=== PATIENT | female | born 1950 | race Caucasian/White ===

== ENCOUNTER 2018-06-09 12:48 | Outpatient (CLI) | payer MEDICARE | END 2018-06-09 12:49 | disposition home or self-care (01) | LOC: BICMAMMO 12:48 | PROVIDERS: ATTEND Family Medicine | DX: Z12.31 Encounter for screening mammogram for malignant neoplasm of breast (principal) | CPT/HCPCS: 77063; 77067 ==

== ENCOUNTER 2019-01-30 07:15 | Outpatient (CLI) | payer MEDICARE, OTHER ==
--- NOTE | 2019-01-30 08:33 | ULT ---
GALLBLADDER ULTRASOUND: HISTORY: Right upper quadrant pain. FINDINGS: The liver, pancreas, right kidney, and gallbladder appear normal. The common duct measures 5 mm in d iameter. No free fluid is seen in the Morison's pouch. IMPRESSION: Normal exam. POS: [facility]
== END 2019-01-30 07:16 | disposition home or self-care (01) ==
LOC: ULT 07:15
PROVIDERS: ATTEND Physician Assistant
DX: R10.11 Right upper quadrant pain (principal)
CPT/HCPCS: 76705

== ENCOUNTER 2019-05-05 11:54 | Outpatient (CLI) | payer MEDICARE, OTHER ==
--- NOTE | 2019-05-05 12:31 | RAD ---
EXAM: Chest 2 views: HISTORY: Cough and wheezing for one month COMPARISON: 11/20/2016 FINDINGS: There is a normal-sized cardiomediastinal silhouette. There is no evidence of consolidation, mass, or pleural effusion. The bones are unremarkable. IMPRESSION: No evidence of acute cardiopulmonary disease
== END 2019-05-05 11:55 | disposition home or self-care (01) ==
LOC: BICRAD 11:54
PROVIDERS: ATTEND Family Medicine
DX: J06.9 Acute upper respiratory infection, unspecified (principal)
CPT/HCPCS: 36415; 71046; 80061; 80076

== ENCOUNTER 2020-02-04 07:37 | Outpatient (CLI) | payer MEDICARE, OTHER ==
--- NOTE | 2020-02-04 12:42 | NM ---
NUCLEAR MEDICINE HIDA SCAN: HISTORY: Right upper quadrant pain. COMPARISON: None. TECHNIQUE: The patient was administered 5.21 mCi of Technetium 99m mebrofenin intravenously. Gallbladder ejecti on fraction was determined after the patient was administered 8 ounces of Ensure orally, 1 hour after injection of radiopharmaceutical. FINDINGS: Appropriate uptake of the radiotracer by the hepatic parenchyma. There is localization of radiotrace r into the intrahepatic biliary system. Passage of radiotracer from the common bile duct into small bowel loops. There is localization of radiotracer in the gallbladder as early as 10 minutes. Gallbladder ejection fraction 93%. IMPRESSION: 1. No scintigraphic evidence of acute cholecystitis. 2. 93% gallbladder ejection fraction. POS: [facility]
== END 2020-02-04 07:38 | disposition home or self-care (01) ==
LOC: NM 07:37
PROVIDERS: ATTEND Family Medicine
DX: R10.11 Right upper quadrant pain (principal)
CPT/HCPCS: 78227; A9537

== ENCOUNTER 2021-04-06 08:32 | Observation (INO) | payer MEDICARE, OTHER ==
[2021-04-06 09:35] LABS: #Basophils 0.1 thou/uL (0.0-0.2); #Eosinphils 0.2 thou/uL (0.0-0.7); #Lymphocytes 2.4 thou/uL (1.20-3.40); #Monocytes 0.5 thou/uL (0.11-0.59); #Neutrophils 3.6 thou/uL (1.40-6.50); %Basophils 0.9 % (0.0-1.0); %Eosinophils 2.6 % (0.0-10.0); %Lymphocytes 35.9 % (21.0-51.0); %Monocytes 7.1 % (0.0-10.0); %Neutrophils 53.4 % (42.0-75.0); Hemoglobin 15.6 g/dL (12.0-16.0); Mean Corpuscular HGB CONC 33.7 g/dL (32.0-36.0); Mean Corpuscular Hemoglobin 30.2 pg (27.0-31.0); Mean Corpuscular Volume 89.7 fL (78.0-98.0); Platelet Count 164 thou/uL (130-400); RBC Distribution Width 12.8 % (11.5-14.5); Red Blood Cell (RBC) Count 5.16 mill/uL (4.20-5.40); White Blood Cell (WBC) Count 6.8 thou/uL (4.8-10.8)
[2021-04-06 09:54] LABS: ALT (SGPT) 40 U/L (8-55); AST (SGOT) 29 U/L (5-34); Albumin 4.4 g/dL (3.4-4.8); Alkaline Phosphatase 93 U/L (40-110); Anion Gap 14 mmol/L (10-20); BUN (Urea Nitrogen) 13 mg/dL (9.8-20.1); Bilirubin, Total 0.5 mg/dL (0.2-1.2); CK (CPK) 50 U/L (29-168); Calc. Creatinine Clearance 0 mL/min (70-130); Carbon Dioxide 23 mmol/L (23-31); Chloride 107 mmol/L (98-107); Globulin 3.5 g/dL (2.4-3.5); Glucose 94 mg/dL (80-115); Lipase 21 U/L (8-78); Protein, Total 7.9 g/dL (5.8-8.1); Sodium 140 mmol/L (136-145)
[2021-04-06] MEDS ORDERED: Aspirin Chewable 81 MG TAB ONE (11:19)
[2021-04-06] MEDS ORDERED: Nitroglycerin 2% Ointment 1 INCH/1 GM Packet ONE (11:19)
[2021-04-06] MEDS ORDERED: Acetaminophen 325 MG TAB PO PRN (13:12)
[2021-04-06] MEDS ORDERED: Ondansetron ODT 4 MG TAB PO PRN (13:12)
[2021-04-06] MEDS ORDERED: Nitroglycerin 0.4 MG TAB (25 Tab Bottle) SL PRN (13:13)
[2021-04-06] MEDS ORDERED: Enoxaparin Sodium 40 MG/0.4 ML SYRINGE SC SCH (13:15)
[2021-04-06 14:53] VITALS: BMI 30.7
[2021-04-06 15:03] LABS: Magnesium 1.7 mg/dL (1.6-2.6)
[2021-04-07 05:24] LABS: #Basophils 0.1 thou/uL (0.0-0.2); #Eosinphils 0.2 thou/uL (0.0-0.7); #Lymphocytes 2.4 thou/uL (1.20-3.40); #Monocytes 0.5 thou/uL (0.11-0.59); #Neutrophils 2.8 thou/uL (1.40-6.50); %Basophils 1.3 % (0.0-1.0); %Eosinophils 3.2 % (0.0-10.0); %Lymphocytes 40.2 % (21.0-51.0); %Monocytes 7.7 % (0.0-10.0); %Neutrophils 47.7 % (42.0-75.0); Hemoglobin 13.6 g/dL (12.0-16.0); Mean Corpuscular HGB CONC 33.8 g/dL (32.0-36.0); Mean Corpuscular Hemoglobin 30.4 pg (27.0-31.0); Mean Corpuscular Volume 89.7 fL (78.0-98.0); Platelet Count 148 thou/uL (130-400); RBC Distribution Width 12.7 % (11.5-14.5); Red Blood Cell (RBC) Count 4.48 mill/uL (4.20-5.40); White Blood Cell (WBC) Count 5.9 thou/uL (4.8-10.8)
[2021-04-07 06:14] LABS: Chloride 109 mmol/L (98-107); Potassium 3.9 mmol/L (3.5-5.1); Sodium 139 mmol/L (136-145)
[2021-04-07 06:15] LABS: Glucose 83 mg/dL (80-115); Triglycerides 281 mg/dL (Less than 150)
[2021-04-07 06:17] LABS: Anion Gap 11 mmol/L (10-20); Carbon Dioxide 23 mmol/L (23-31)
[2021-04-07 06:18] LABS: Calc. Creatinine Clearance 86 mL/min (70-130)
[2021-04-07 06:19] LABS: BUN (Urea Nitrogen) 12 mg/dL (9.8-20.1)
[2021-04-07 06:20] LABS: Cholesterol 203 mg/dl (< 200 Desired)
[2021-04-07 06:21] LABS: Cardiac Risk 6.2 (Less than 4.5); HDL Cholesterol 33 mg/dL (>60 Neg Risk); LDL Cholesterol, Calculated 114 mg/dL
[2021-04-07] MEDS ORDERED: Fioricet 325/50/40 mg Tablet PO PRN (08:59)
[2021-04-07] MEDS ORDERED: Furosemide 20 MG TAB PO PRN (08:59)
[2021-04-07] MEDS ORDERED: Potassium Chloride 20 MEQ TAB PO PRN (08:59)
[2021-04-07] MEDS: Aspirin Chewable 81 MG TAB PO SCH ×2 (09:23→11:21)
[2021-04-07] MEDS: Enoxaparin Sodium 40 MG/0.4 ML SYRINGE SC SCH ×2 (09:24→11:21)
[2021-04-07] MEDS ORDERED: ADENOSINE 60 MG/20 ML VIAL ONE (09:59)
[2021-04-07 11:40] VITALS: BP 137/65; TEMP 97.6
[2021-04-07 11:54] LABS: SARS-CoV-2 PCR by NAA Not Detected (NotDetected)
[2021-04-07] MEDS ORDERED: Atorvastatin Calcium 40 MG TAB PO SCH (21:00)
== END 2021-04-07 14:10 | disposition home or self-care (01) ==
LOC: ERS 08:32 → 2SW 11:44
PROVIDERS: ADMIT Internal Medicine; ATTEND Internal Medicine
DX: R07.89 Other chest pain (principal); I87.2 Venous insufficiency (chronic) (peripheral); I48.91 Unspecified atrial fibrillation; I44.0 Atrioventricular block, first degree; M79.10 Myalgia, unspecified site; R79.89 Other specified abnormal findings of blood chemistry; I49.3 Ventricular premature depolarization; I34.1 Nonrheumatic mitral (valve) prolapse; K21.9 Gastro-esophageal reflux disease without esophagitis; Z20.822 Contact with and (suspected) exposure to COVID-19; Z79.899 Other long term (current) drug therapy; Z88.1 Allergy status to other antibiotic agents; Z88.5 Allergy status to narcotic agent; Z90.710 Acquired absence of both cervix and uterus
CPT/HCPCS: 71275; 78452; 80048; 80061; 82550; 83690; 83735; 83880; 84484 ×2; 85025; 93005; 93017; 93306; 93971; A9500; U0003; U0005; 36415; 80053; 84443; J0153; J1650

== ENCOUNTER 2021-12-08 09:23 | Outpatient (CLI) | payer MEDICARE, OTHER | END 2021-12-08 09:24 | disposition home or self-care (01) | LOC: ULT 09:23 | PROVIDERS: ATTEND Physician Assistant Medical | DX: R10.11 Right upper quadrant pain (principal); R14.0 Abdominal distension (gaseous); M54.9 Dorsalgia, unspecified; R19.8 Other specified symptoms and signs involving the digestive system and abdomen; K76.0 Fatty (change of) liver, not elsewhere classified; K82.8 Other specified diseases of gallbladder | CPT/HCPCS: 76705 ==

== ENCOUNTER 2022-07-19 13:57 | Outpatient (CLI) | payer MEDICARE, OTHER | END 2022-07-19 13:58 | disposition home or self-care (01) | LOC: TBSIIMAG 13:57 | PROVIDERS: ATTEND Orthopaedic Surgery | DX: M48.061 Spinal stenosis, lumbar region without neurogenic claudication (principal); M51.36 Other intervertebral disc degeneration, lumbar region | CPT/HCPCS: 72148 ==

== ENCOUNTER 2023-02-28 09:34 | Outpatient (CLI) | payer MEDICARE, OTHER | END 2023-02-28 09:35 | disposition home or self-care (01) | LOC: BICMAMMO 09:34 | PROVIDERS: ATTEND Family Medicine | DX: Z12.31 Encounter for screening mammogram for malignant neoplasm of breast (principal) | CPT/HCPCS: 77063; 77067 ==

== ENCOUNTER 2023-10-15 08:09 | Inpatient (IN) | payer MEDICARE, OTHER ==
[2023-10-09 15:53] VITALS: BMI 32.1
[2023-10-15] MEDS ORDERED: LevoFLOXacin D5W 500 mg (100 mL) BAG ONE (10:08)
[2023-10-15] MEDS ORDERED: Clindamycin/D5W 600 mg/50 ml Premix Bag ONE (10:08)
[2023-10-15] MEDS ORDERED: Vancomycin (BATCH) 1.5 GM/300 ML BAG ONE (10:09)
[2023-10-15] MEDS ORDERED: Dexamethasone 4 mg/ml Vial ONE (10:20)
[2023-10-15] MEDS ORDERED: Ondansetron PF 4 MG/2 ML Vial ONE ×2 (10:20→14:53)
[2023-10-15] MEDS ORDERED: Rocuronium Bromide 10 MG/ML (10ML VIAL) ONE (10:20)
[2023-10-15] MEDS ORDERED: PROPOFOL 20 ML ONE (10:20)
[2023-10-15] MEDS ORDERED: SUGAMMADEX SODIUM 200 MG/2 ML VIAL ONE (10:20)
[2023-10-15] MEDS ORDERED: fentaNYL PF 100 MCG/2 ML SYRINGE ONE (10:20)
[2023-10-15] MEDS ORDERED: Dexmedetomidine 200 MCG/2 ML VIAL ONE ×2 (10:38→10:39)
[2023-10-15] MEDS ORDERED: diphenhydrAMINE 25 MG CAP PO PRN ×2 (11:00→19:00)
[2023-10-15] MEDS ORDERED: Promethazine HCl 25 MG/ML VIAL IM PRN ×2 (11:00→19:00)
[2023-10-15] MEDS ORDERED: Moisturizing Cream (Eucerin) 113 GM JAR TOP PRN ×2 (11:00→19:00)
[2023-10-15] MEDS ORDERED: Naloxone HCl 0.4 mg/ml Vial IVP PRN ×2 (11:00→19:00)
[2023-10-15] MEDS ORDERED: diphenhydrAMINE 50 MG/ML VIAL IM PRN ×2 (11:00→19:00)
[2023-10-15] MEDS ORDERED: FENTANYL 1,000 MCG/20 ML VIAL 500 MCG, Bupivacaine 0.5% 15 ML in Sodium Chloride 0.9% 7... EPIDURAL SCH (11:00)
[2023-10-15] MEDS ORDERED: Promethazine HCl 25 MG SUPP PR PRN ×2 (11:00→19:00)
[2023-10-15] MEDS ORDERED: Naloxone HCl 0.4 mg/ml Vial IV PRN ×2 (11:00→19:00)
[2023-10-15] MEDS ORDERED: traMADol HCl 50 MG TAB PO PRN ×2 (11:00)
[2023-10-15] MEDS ORDERED: diphenhydrAMINE 50 MG/ML VIAL IVP PRN ×2 (11:00→19:00)
[2023-10-15] MEDS ORDERED: fentaNYL 50 mcg/mL 1 mL Vial ONE ×3 (11:23→14:49)
[2023-10-15] MEDS ORDERED: Tranexamic Acid 1,000 MG/10 ML VIAL ONE (11:43)
[2023-10-15] MEDS ORDERED: Sodium Chloride 0.9% 100 ML ONE (11:43)
[2023-10-15] MEDS ORDERED: Ropivacaine 0.2% HCl/PF 20 ML ONE (11:51)
[2023-10-15] MEDS ORDERED: Zolpidem Tartrate 5 MG TAB PO PRN (12:27)
[2023-10-15] MEDS ORDERED: Acetaminophen 325 MG TAB PO PRN (12:27)
[2023-10-15] MEDS ORDERED: PHENYLEPHRINE-NS 100 MCG/ML 10 ML SYRINGE ONE (12:30)
[2023-10-15] MEDS ORDERED: Lidocaine 1.5% w/Epi 1:200K 30 ML VIAL (Epid Use) ONE (12:30)
[2023-10-15] MEDS ORDERED: ePHEDrine Sulfate 50 MG/10 ML VIAL ONE (12:36)
[2023-10-15] MEDS ORDERED: Promethazine HCl 25 MG/ML VIAL ONE (15:15)
[2023-10-15] MEDS: Acetaminophen 325 MG TAB PO SCH (16:18)
[2023-10-15] MEDS: Sodium Chloride 0.9% 1,000 ML IV SCH (16:19)
[2023-10-15] MEDS: Clindamycin/D5W 900 MG in Premix 1 BAG IVPB SCH (17:07)
[2023-10-15] MEDS: Ketorolac Tromethamine 30 MG (1 mL) VIAL IVP SCH (17:07)
[2023-10-15] MEDS ORDERED: Bupivacaine 0.25% 10 ML VIAL EPIDURAL PRN (19:00)
[2023-10-15] MEDS ORDERED: Ondansetron PF 4 MG/2 ML Vial IVP PRN (19:00)
[2023-10-15] MEDS ORDERED: FENTANYL 500 MCG/10 ML VIAL 500 MCG, Bupivacaine 0.75% 10 ML in Sodium Chloride 0.9% 80 ML EPIDURAL SCH (19:00)
[2023-10-15] MEDS: Ferrous Gluconate 324 MG TAB PO SCH (20:10)
[2023-10-15] MEDS: Senokot S 8.6-50 MG TAB PO SCH (20:10)
[2023-10-15] MEDS ORDERED: Apixaban 2.5 MG TAB PO SCH (21:00)
[2023-10-15] MEDS ORDERED: Ketorolac Tromethamine 30 MG (1 mL) VIAL IVP SCH (23:59)
[2023-10-16] MEDS ORDERED: Naloxone HCl 0.4 mg/ml Vial IVP PRN ×2 (03:24)
[2023-10-16] MEDS ORDERED: Moisturizing Cream (Eucerin) 113 GM JAR TOP PRN (03:24)
[2023-10-16] MEDS ORDERED: Ondansetron PF 4 MG/2 ML Vial IVP PRN ×2 (03:24→21:03)
[2023-10-16] MEDS ORDERED: diphenhydrAMINE 25 MG CAP PO PRN ×2 (03:24→21:03)
[2023-10-16] MEDS ORDERED: diphenhydrAMINE 50 MG/ML VIAL IM PRN ×2 (03:24→21:03)
[2023-10-16] MEDS ORDERED: Bupivacaine 0.25% 10 ML VIAL EPIDURAL PRN (03:24)
[2023-10-16] MEDS ORDERED: diphenhydrAMINE 50 MG/ML VIAL IVP PRN ×3 (03:24→21:06)
[2023-10-16] MEDS ORDERED: Promethazine HCl 25 MG SUPP PR PRN (03:24)
[2023-10-16] MEDS ORDERED: Promethazine HCl 25 MG/ML VIAL IM PRN ×2 (03:24→21:03)
[2023-10-16] MEDS ORDERED: Zolpidem Tartrate 5 MG TAB PO PRN (03:24)
[2023-10-16] MEDS ORDERED: Communication Order-Pharmacy FS SCH ×3 (03:30→21:15)
[2023-10-16] MEDS ORDERED: FENTANYL EPIDURAL SCH (03:30)
[2023-10-16] MEDS ORDERED: BUPIVACAINE EPIDURAL SCH (03:30)
[2023-10-16] MEDS: FENTANYL 500 MCG/10 ML VIAL 500 MCG, Bupivacaine 0.75% 10 ML in Sodium Chloride 0.9% 80 ML EPIDURAL SCH (04:46)
[2023-10-16 05:21] LABS: Hematocrit 34.7 % (36.0-47.0); Hemoglobin 11.7 g/dL (12.0-16.0); Mean Corpuscular HGB CONC 33.7 g/dL (32.0-36.0); Mean Corpuscular Hemoglobin 30.2 pg (27.0-31.0); Mean Corpuscular Volume 89.4 fL (78.0-98.0); Mean Platelet Volume 10.4 fL (7.4-10.4); Platelet Count 143 10x3/uL (130-400); RBC Distribution Width 13.7 % (11.5-14.5); Red Blood Cell (RBC) Count 3.88 mill/uL (4.20-5.40)
[2023-10-16] MEDS ORDERED: Apixaban 2.5 MG TAB PO SCH (09:00)
[2023-10-16] MEDS: Ondansetron PF 4 MG/2 ML Vial IVP PRN (09:27)
[2023-10-16] MEDS: Multivitamin W/ Minerals 1 TAB PO SCH (09:50)
[2023-10-16] MEDS: HYDROcodone/Acetaminophen 7.5/325 mg Tablet PO PRN ×2 (09:54→16:49)
[2023-10-16] MEDS: Apixaban 2.5 MG TAB PO SCH (20:35)
[2023-10-16] MEDS ORDERED: Naloxone HCl 0.4 mg/ml Vial IV PRN (21:03)
[2023-10-16] MEDS: FENTANYL 500 MCG/10 ML VIAL 2,000 MCG in Sodium Chloride 0.9% 60 ML IV PRN (21:29)
[2023-10-17 05:35] LABS: Hematocrit 35.6 % (36.0-47.0); Hemoglobin 11.6 g/dL (12.0-16.0); Mean Corpuscular Hemoglobin 30.4 pg (27.0-31.0); Mean Platelet Volume 10.8 fL (7.4-10.4); Platelet Count 115 10x3/uL (130-400); RBC Distribution Width 14.1 % (11.5-14.5); Red Blood Cell (RBC) Count 3.81 mill/uL (4.20-5.40)
[2023-10-17] MEDS ORDERED: Cyclobenzaprine 10 MG TAB PO PRN (07:35)
[2023-10-17 12:56] LABS: Anion Gap 6 mmol/L (10-20); BUN (Urea Nitrogen) 9 mg/dL (9.8-20.1); Calc. Creatinine Clearance 86 mL/min (70-130); Calcium 7.8 mg/dL (7.8-10.44); Carbon Dioxide 24 mmol/L (23-31); Chloride 111 mmol/L (98-107); Estimated GFR 74; Glucose 109 mg/dL (83-110); Potassium 3.4 mmol/L (3.5-5.1); Sodium 138 mmol/L (136-145)
[2023-10-17] MEDS: Pantoprazole DR 40 MG TAB PO SCH ×2 (13:46)
[2023-10-17] MEDS: Furosemide 20 MG TAB PO SCH (14:59)
[2023-10-17] MEDS: Ketorolac Tromethamine 30 MG (1 mL) VIAL IVP SCH (18:26)
[2023-10-17] MEDS: Simvastatin 10 MG TAB PO SCH (20:48)
[2023-10-18 06:08] LABS: Hematocrit 30.4 % (36.0-47.0); Hemoglobin 10.1 g/dL (12.0-16.0); Mean Corpuscular HGB CONC 33.2 g/dL (32.0-36.0); Mean Corpuscular Hemoglobin 30.7 pg (27.0-31.0); Mean Corpuscular Volume 92.4 fL (78.0-98.0); Mean Platelet Volume 10.5 fL (7.4-10.4); Platelet Count 123 10x3/uL (130-400); Red Blood Cell (RBC) Count 3.29 mill/uL (4.20-5.40)
[2023-10-18] MEDS: traMADol HCl 50 MG TAB PO PRN (08:42)
[2023-10-18] MEDS ORDERED: CeleCOXIB 100 MG CAP PO SCH (09:00)
[2023-10-18 11:14] VITALS: BP 117/69; TEMP 98.2
== END 2023-10-18 13:48 | disposition home or self-care (01) | DRG 470 ==
LOC: SDC 08:09 → SJJU 16:23 → OBSVTOIN 10-17 06:52
PROVIDERS: ADMIT Orthopaedic Surgery; ATTEND Orthopaedic Surgery
PROC: 0SRB0JZ Replacement of Left Hip Joint with Synthetic Substitute, Open Approach (ICD-10-PCS; principal; 2023-10-15)
DX: M16.12 Unilateral primary osteoarthritis, left hip (principal); K21.9 Gastro-esophageal reflux disease without esophagitis; I10 Essential (primary) hypertension; Z88.8 Allergy status to other drugs, medicaments and biological substances; E78.5 Hyperlipidemia, unspecified; Z98.51 Tubal ligation status; Z90.710 Acquired absence of both cervix and uterus; Z90.89 Acquired absence of other organs; Z79.899 Other long term (current) drug therapy; I48.0 Paroxysmal atrial fibrillation; Z82.49 Family history of ischemic heart disease and other diseases of the circulatory system; Z87.891 Personal history of nicotine dependence; G43.909 Migraine, unspecified, not intractable, without status migrainosus
CPT/HCPCS: 36415; 71045; 72170; 80048; 85027; C1713; C1776; J1100; J1885; J1956; J2001; J2405; J2550; J2704; J2795; J3010; J3370; J3490; J7050

== ENCOUNTER 2024-02-15 10:41 | Observation (INO) | payer MEDICARE ==
[2024-02-15 11:04] LABS: #Basophils 0.05 10x3/uL (0.0-0.2); %Basophils 0.6 % (0.0-1.0); %Eosinophils 2.9 % (0.0-10.0); %Lymphocytes 29.2 % (21.0-51.0); %Monocytes 7.5 % (0.0-10.0); %Neutrophils 58.8 % (42.0-75.0); Hematocrit 43.3 % (36.0-47.0); Hemoglobin 14.8 g/dL (12.0-16.0); Mean Corpuscular HGB CONC 34.2 g/dL (32.0-36.0); Mean Corpuscular Volume 84.7 fL (78.0-98.0); Platelet Count 154 10x3/uL (130-400); RBC Distribution Width 14.6 % (11.5-14.5); Red Blood Cell (RBC) Count 5.11 mill/uL (4.20-5.40)
[2024-02-15] MEDS ORDERED: Aspirin Chewable 81 MG TAB ONE (11:13)
[2024-02-15 11:25] LABS: ALT (SGPT) 76 U/L (8-55); AST (SGOT) 48 U/L (5-34); Albumin 3.9 g/dL (3.4-4.8); Alkaline Phosphatase 91 U/L (40-110); Anion Gap 13 mmol/L (10-20); BUN (Urea Nitrogen) 14 mg/dL (9.8-20.1); Bilirubin, Total 0.6 mg/dL (0.2-1.2); Calc. Creatinine Clearance 0 mL/min (70-130); Calcium 9.7 mg/dL (7.8-10.44); Carbon Dioxide 25 mmol/L (23-31); Chloride 108 mmol/L (98-107); Estimated GFR 68; Globulin 3.4 g/dL (2.4-3.5); Glucose 90 mg/dL (83-110); Lipase 13 U/L (8-78); Potassium 4.1 mmol/L (3.5-5.1); Protein, Total 7.3 g/dL (5.8-8.1); Sodium 142 mmol/L (136-145)
[2024-02-15 11:32] LABS: Troponin I Less than 0.010 ng/mL (< 0.028)
[2024-02-15] MEDS ORDERED: Morphine 2 MG/ML VIAL ONE (12:48)
[2024-02-15] MEDS ORDERED: Ondansetron PF 4 MG/2 ML Vial IVP PRN (14:35)
[2024-02-15] MEDS ORDERED: Nitroglycerin 0.4 MG TAB (25 Tab Bottle) SL PRN (14:35)
[2024-02-15 15:38] LABS: Troponin I Less than 0.010 ng/mL (< 0.028)
[2024-02-15 17:46] VITALS: BMI 32.1
[2024-02-15] MEDS: Atorvastatin Calcium 40 MG TAB PO SCH (20:54)
[2024-02-15] MEDS: Pantoprazole DR 40 MG TAB PO SCH (20:54)
[2024-02-16 04:49] LABS: Anion Gap 11 mmol/L (10-20); BUN (Urea Nitrogen) 16 mg/dL (9.8-20.1); Calc. Creatinine Clearance 61 mL/min (70-130); Calcium 9.3 mg/dL (7.8-10.44); Carbon Dioxide 26 mmol/L (23-31); Chloride 109 mmol/L (98-107); Estimated GFR 49; Glucose 133 mg/dL (83-110); Potassium 4.4 mmol/L (3.5-5.1); Sodium 142 mmol/L (136-145)
[2024-02-16 04:52] LABS: #Basophils 0.05 10x3/uL (0.0-0.2); %Basophils 0.6 % (0.0-1.0); %Eosinophils 2.5 % (0.0-10.0); %Lymphocytes 22.3 % (21.0-51.0); %Monocytes 6.7 % (0.0-10.0); %Neutrophils 67.3 % (42.0-75.0); Hematocrit 40.5 % (36.0-47.0); Hemoglobin 13.4 g/dL (12.0-16.0); Mean Corpuscular HGB CONC 33.1 g/dL (32.0-36.0); Mean Corpuscular Hemoglobin 29.5 pg (27.0-31.0); Mean Corpuscular Volume 89.2 fL (78.0-98.0); Mean Platelet Volume 10.6 fL (7.4-10.4); Platelet Count 146 10x3/uL (130-400); RBC Distribution Width 14.7 % (11.5-14.5); Red Blood Cell (RBC) Count 4.54 mill/uL (4.20-5.40)
[2024-02-16] MEDS: Pantoprazole DR 40 MG TAB PO SCH (08:46)
[2024-02-16] MEDS: Aspirin 81 mg Enteric Coated Tablet PO SCH (08:46)
[2024-02-16] MEDS ORDERED: Enoxaparin 40 MG (0.4 mL) SYRINGE SC SCH (09:00)
[2024-02-16] MEDS ORDERED: Regadenoson 0.4 MG/5 ML SYRINGE ONE (11:31)
[2024-02-16 13:25] VITALS: BP 157/82; TEMP 97.6
== END 2024-02-16 15:34 | disposition home or self-care (01) ==
LOC: ERS 10:41 → ERHOLD 14:06 → 2SW 17:16
PROVIDERS: ADMIT Internal Medicine; ATTEND Internal Medicine
DX: R07.9 Chest pain, unspecified (principal); K21.9 Gastro-esophageal reflux disease without esophagitis; I10 Essential (primary) hypertension; E78.5 Hyperlipidemia, unspecified; I48.91 Unspecified atrial fibrillation; Z98.51 Tubal ligation status; Z90.710 Acquired absence of both cervix and uterus; Z90.49 Acquired absence of other specified parts of digestive tract; Z90.89 Acquired absence of other organs; Z88.5 Allergy status to narcotic agent; Z88.1 Allergy status to other antibiotic agents
CPT/HCPCS: 71045; 78452; 80048; 80053; 83690; 83735; 83880; 84484 ×2; 85025 ×2; 93005; 93017; 96374; 99285; A9502; J2272; J2785 ×2; 36415; G0378